=== PATIENT | male | born 1970 | race Caucasian/White ===

== ENCOUNTER 2022-03-13 10:24 | Emergency (ER) | payer BC, SELFPAY ==
[2022-03-13 10:39] VITALS: BP 137/96; PULSE 71; RESP 16; TEMP 36.4; O2SAT 100
--- NOTE | 2022-03-13 10:46 | ED.SKABFB ---
HPI - Skin/Abscess/Foreign Bdy General Chief complaint: Skin/Abscess/Foreign Body Stated complaint: rash on abdomen Time Seen by Provider: 03/13/22 10:46 Source: patient, RN notes reviewed and old records reviewed Mode of arrival: ambulatory Limitations: no limitations History of Present Illness HPI narrative: 51-year-old male presents to [facility] with complaints of 3 months duration of rash along his belt line that will get a little better, skin will sluff and then redness will improve then come back. Patient reports that rash started in November after he had been mowing. He reports that at first he thought it was a spider bite but rash will get better then get redder again. Patient reports that rash is not painful but is itchy.Area is 9cm X4cm in size along anterior belt line, no pustules, red skin with some scaly areas. MD complaint: rash Onset (ago): month(s) (3) Treatments prior to arrival: OTC topical medication Related Data Allergies Allergy/AdvReac Type Severity Reaction Status Date / Time No Known Allergies Allergy Verified 03/13/22 10:36 Review of Systems Review of Systems: CONSTITUTIONAL: Denies fever, chills, or sweats. CARDIOVASCULAR: Denies chest pain, palpitations, or edema. RESPIRATORY: Denies cough or dyspnea. SKIN: Reports rash along his belt line anterior area right of umbilicus, no pustules or pain MUSCULOSKELETAL: Denies joint pain or myalgia. NEUROLOGIC: Denies headache, numbness, or weakness. All systems reviewed & are unremarkable except as noted in HPI and below PMFSH Social History Social History (Updated 03/13/22 @ 10:47 by Nay Najera NP) Smoking status: Never smoker Alcohol intake: current Gender identity (if verbalized by the patient): Male Comments At time of signature, agree with nursing past medical, surgical, social and family history. There is no relevant family history pertinent to the presenting complaint Exam Narrative: GENERAL: Well-appearing, well-nourished, and in no acute distress. HEAD: Normocephalic, atraumatic. EYES: PERRLA, conjunctivae clear, and EOMI. ENT: Mucous membranes moist. Oropharynx without edema, erythema or lesions. NECK: Supple. No lymphadenopathy CHEST: Clear to auscultation. No respiratory distress. SAO2 100% on room air HEART: Regular rate and rhythm. SKIN: Warm, dry.? Patches of erythema with skin itchy and some white sluffing of skin, no pustule formation or pain NEURO:? Alert and oriented x3. PSYCH: Normal mood and affect Course Course Emergency Course: Patient is aware of diagnosis, understands and agrees to treatment plan.? Anticipatory guidance given.? Patient agrees to follow-up as directed and is aware of reasons to seek care at the emergency department. Portions of this record may have been created with voice recognition software Level of Care: Express Care Visit Vital Signs Vital signs: Vital Signs Temperature 36.4 C 03/13/22 10:39 Pulse Rate 71 03/13/22 10:39 Respiratory Rate 16 03/13/22 10:39 Blood Pressure 137/96 H 03/13/22 10:39 Pulse Oximetry 100 03/13/22 10:39 Oxygen Delivery Room Air 03/13/22 10:39 Temperature 36.4 C 03/13/22 10:39 Pulse Rate 71 03/13/22 10:39 Respiratory Rate 16 03/13/22 10:39 Blood Pressure 137/96 H 03/13/22 10:39 Pulse Oximetry 100 03/13/22 10:39 Oxygen Delivery Room Air 03/13/22 10:39 Reviewed MDM - Skin/Abscess/Foreign Bdy MDM Narrative Medical decision making narrative: Does not appear at this time to be erythema multiforme, bullous, SJS, TEN; no evidence at this time to suggest RMSF, endocarditis or Lyme disease; patient looks well, nontoxic and is tolerating oral intake; no neurologic signs or symptoms; no headache, photophobia or neck pain; afebrile; appropriate for initial outpatient treatment; discussed the importance of follow-up, patient agrees; question, viral exanthema, contact dermatitis, allergic dermatitis, eczema, u
== END 2022-03-13 11:08 | disposition home or self-care (01) ==
PROVIDERS: Emergency Provider Registered Nurse
DX: L25.9 Unspecified contact dermatitis, unspecified cause (principal)
CPT/HCPCS: 99213; G0463

== ENCOUNTER 2022-04-23 07:00 | Outpatient (NON) | payer BC, SELFPAY | END 2022-04-23 07:01 | disposition home or self-care (01) | PROVIDERS: Visit Provider Nurse Practitioner | DX: D49.2 Neoplasm of unspecified behavior of bone, soft tissue, and skin (principal) | CPT/HCPCS: 88305 ==